=== PATIENT | male | born 2000 ===

== ENCOUNTER 2021-05-27 13:48 | Emergency (ER) | payer BC ==
[2021-05-27 14:06] VITALS: TEMP 98.6; BMI 29.5
[2021-05-27 16:14] VITALS: BP 140/90; PULSE 72
== END 2021-05-27 16:15 | disposition home or self-care (01) ==
LOC: FER 13:48
DX: R00.2 Palpitations (principal)
CPT/HCPCS: 36415; 71045-TC-FY; 84439; 84443; 93005; 99284-25